=== PATIENT | female | born 1995 | race Caucasian/White ===

== ENCOUNTER → 2018-01-16 | Outpatient (CLI) | payer MEDICAID, OTHER ==
[~2018-01-16] MED LIST: DCS100C PO; DOCU100C37 PO; FERR-57 PO; FERR-84 PO; FLUC200T45 PO; FRS325T PO; IBP800T PO; IBUP-1780 PO; MAGN400T26 PO; MAGN400T6 PO; NITR-65 PO; OMEP20CA6 PO; OXYC-465 PO; OXYC1TAB12 PO; PREN-142 PO; PREN-98 PO
--- NOTE | 2018-01-16 08:41 | Diagnostic Imaging Report ---
INDICATION: Thyroid enlargement. TECHNIQUE: Grayscale sonographic images of the thyroid gland. CORRELATION STUDY: None FINDINGS: RIGHT LOBE: 4.9 x 1.5 x 1.8 cm. There is normal echotexture about the right lobe. LEFT LOBE: 4.5 x 1.6 x 1.4 cm. There is normal echotexture about the left lobe. Isthmus appears unremarkable. IMPRESSION: Borderline enlarged thyroid gland. Otherwise, unremarkable appearing thyroid ultrasound examination. (Normal gland size: 4-5 x 2 x 2 cm) Dictated by: Dictated on workstation # [id number]
== END ==
LOC: RAD 08:04
PROVIDERS: ATTEND Obstetrics & Gynecology
DX: E04.2 Nontoxic multinodular goiter (principal)
CPT/HCPCS: 76536

== ENCOUNTER → 2018-01-21 | Outpatient (CLI) | payer MEDICAID, OTHER ==
--- NOTE | 2018-01-22 13:55 | Diagnostic Imaging Report ---
Indication: Goiter. Patient was administered 204 mCi I-123 and a 4 hour and 24 uptake was obtained. Thyroid scan was also performed. 4 hour uptake is 26%. 24 hour uptake is 45%. Normal 24-hour uptake is typically 10-30%. Thyroid scan demonstrates fairly homogeneous uptake of activity throughout both lobes of the thyroid gland. No definite hot or cold nodules are seen. Impression: Mildly elevated thyroid uptake suggestive of hyperthyroidism. No other significant abnormality is seen. Dictated by: Dictated on workstation # [id number]
== END ==
LOC: CARD 10:50
PROVIDERS: ATTEND Obstetrics & Gynecology
DX: E04.9 Nontoxic goiter, unspecified (principal)
CPT/HCPCS: 78014

== ENCOUNTER 2020-10-07 21:43 | Outpatient (CLI) | payer OTHER, MEDICAID ==
[~2020-10-07] VITALS: Ht 154.9 cm; Wt 79.8 kg
[~2020-10-07 21:43] MED LIST changes: -OXYC-465 PO; +OXYC-556 PO
[2020-10-07 22:13] VITALS: BP 126/77
[2020-10-07 22:53] VITALS: BP 107/65
--- NOTE | 2020-10-10 08:03 | Physician Query-Final Dx ---
BENIGNO KEITA 10/10/20 0803: Clinic Account Progress/Dx Physician Query: Please give diagnosis Please include # weeks gestation Date of Service Oct 07, 2020 at 21:43 YOHAN REYES MD 10/10/20 1742: Clinic Account Progress/Dx DIAGNOSIS: Diagnosis 35 weeks gestation with false labor BENIGNO KEITA Oct 10, 2020 08:03 YOHAN REYES MD Oct 10, 2020 17:42
== END 2020-10-07 23:20 | disposition home or self-care (01) ==
LOC: LDRP 21:43 → WSo 21:43
PROVIDERS: ATTEND Obstetrics & Gynecology
DX: O62.4 Hypertonic, incoordinate, and prolonged uterine contractions (principal); Z3A.35 35 weeks gestation of pregnancy

== ENCOUNTER 2020-10-10 14:39 | Inpatient (IN) | payer OTHER, MEDICAID ==
[~2020-10-10] VITALS: Ht 154.9 cm; Wt 79.0 kg
[2020-10-10] VITALS (44 sets, daily range): BP systolic 113–140; BP diastolic 55–89
[2020-10-10] MEDS ORDERED: D5 LR IV SOLUTION 1,000 ML IV ONE (15:14)
[2020-10-10] MEDS: D5 LR IV SOLUTION 1,000 ML IV SCH ×3 (16:48→23:33)
[2020-10-10] MEDS ORDERED: D5 LR IV SOLUTION 1,000 ML IV SCH (17:15)
[2020-10-10 17:29] LABS: BASOPHILS % (AUTO) 0 % (0-10); EOSINOPHILS # (AUTO) 0.1 10^3/uL (0.0-0.3); EOSINOPHILS % (AUTO) 1 % (0-10); HEMATOCRIT 29 % (35-52); HEMOGLOBIN 8.6 g/dL (11.5-16.0); LYMPHOCYTES # (AUTO) 1.4 10^3/uL (1.0-4.0); LYMPHOCYTES % (AUTO) 13 % (12-44); MEAN CORPUSCULAR HEMOGLOBIN 22 pg (25-34); MEAN CORPUSCULAR HGB CONC 30 g/dL (32-36); MEAN CORPUSCULAR VOLUME 74 fL (80-99); MEAN PLATELET VOLUME 11.2 fL (9.0-12.2); MONOCYTES # (AUTO) 0.6 10^3/uL (0.0-1.0); MONOCYTES % (AUTO) 6 % (0-12); NEUTROPHILS # (AUTO) 8.9 10^3/uL (1.8-7.8); NEUTROPHILS % (AUTO) 80 % (42-75); PLATELET COUNT 368 10^3/uL (130-400); WHITE BLOOD COUNT 11.1 10^3/uL (4.3-11.0)
--- NOTE | 2020-10-10 17:37 | History & Physical ---
History and Physical Date Seen by Provider: Oct 10, 2020 Time Seen by Provider: 17:35 This patient is a 25-year-old 3 para 2 white female with 2 prior delivery before 36 weeks gestation. She currently is 36 weeks gestation and in the active labor. Her GBS culture after 35 weeks gestation was negative. She denies rupture membranes or bleeding. She does feel contractions of strength and intensity that remind her of her previous labors and deliveries Allergies are none Medications are vitamins Medical social and surgical history is all per the antepartum record HEENT exam is normal Neck is supple no lymphadenopathy no thyromegaly Abdomen is gravid soft nontender nondistended Extremities show no clubbing cyanosis. There is no Homans' sign. Pelvic exam shows a cervix 5 cm dilated 70 to 80% effaced 0-1 station vertex presentation with an intact membrane that is ruptured and artificially releasing clear fluid monitor shows contractions every 2 minutes with a normal heart rate pattern Assessment and plan 36-week in a patient with 2 prior deliveries prior to 37 weeks who is now an active labor she is being managed expectantly we anticipate a vaginal delivery 36 weeks with labor Allergies and Home Medications Allergies Coded Allergies: No Known Drug Allergies (Unverified , 04/25/14) Home Medications Vit No.124/Iron/FA 1 Each Tablet, 1 EACH PO DAILY, (Reported) Patient Home Medication List Home Medication List Reviewed: Yes YOHAN REYES MD Oct 10, 2020 17:37
[2020-10-10] MEDS ORDERED: IBUP-1780 PO (17:44)
[2020-10-10] MEDS ORDERED: DOCU-143 PO (17:44)
[2020-10-10] MEDS ORDERED: OXYC1TAB87 PO (17:44)
[2020-10-10] MEDS ORDERED: OXYTOCIN PRE-MIX DRIP 500 ML IV SCH ×2 (17:45→23:45)
--- NOTE | 2020-10-10 17:45 | Discharge Inst-Surgical ---
Discharge Inst-Surgical Depart Medication/Instructions New, Converted or Re-Newed RX: RX on Chart Consults/Follow Up Patient Instructions: As directed Orders & Referrals Follow Up Appt: Call to make follow up appt. for patient in 4 weeks. Activity Per routine post vaginal delivery instructions. Please call in RX to patient pharmacy. Diet as tolerated Patient may shower or tub bathe as desired. Activity Activity as Tolerated: No Diet Discharge Diet: No Restrictions YOHAN REYES MD Oct 10, 2020 17:45
[2020-10-10] MEDS ORDERED: fentaNYL 2 mcg/ml BUPIVA 0.125 100 ML ONE (18:23)
[2020-10-10] MEDS ORDERED: ONDANSETRON 4 MG/2 ML (SDV) Z0FRAN IV PRN (19:00)
[2020-10-10] MEDS ORDERED: NALOXONE 0.4 MG/ML 1 ML (NARCAN) VIAL IV PRN ×2 (19:00)
[2020-10-10] MEDS ORDERED: EPIDURAL (fentaNYL 2 MCG/ML BUPIVA 0.125%)100 ML BAG EPI SCH (19:00)
[2020-10-10] MEDS ORDERED: diphenhydrAMINE 50 MG/ML INJ (BENADRYL) IV PRN (19:00)
[2020-10-10] MEDS ORDERED: LACTATED RINGERS 1,000 ML IV SCH (19:00)
[2020-10-10] MEDS ORDERED: METOCLOPRAMIDE INJ 10 MG/2 ML (REGLAN) IV PRN (19:00)
[2020-10-10] MEDS ORDERED: KETOROLAC 30 MG/ML VIAL ONE (23:25)
[2020-10-10] MEDS ORDERED: BENZOCAINE/MENTHOL (DERMOPLAST) 56 ML CAN TP ONE (23:40)
[2020-10-10] MEDS ORDERED: WITCH HAZEL(TUCKS) 40 EA JAR ONE (23:40)
[2020-10-10] MEDS: KETOROLAC 30 MG/ML VIAL IVP SCH (23:43)
[2020-10-10] MEDS: CATHETER FLUSH 10 ML SYR IV SCH (23:43)
[2020-10-10] MEDS ORDERED: BENZOCAINE/MENTHOL (DERMOPLAST) 56 ML CAN TP PRN (23:45)
[2020-10-10] MEDS ORDERED: WITCH HAZEL(TUCKS) 40 EA JAR TOP PRN (23:45)
[2020-10-10] MEDS ORDERED: oxyCODONE/APAP 5/325MG (PERCOCET 5) TABLET PO PRN (23:45)
[2020-10-10] MEDS: IBUPROFEN 800 MG (MOTRIN) TAB PO SCH (23:45)
[2020-10-10] MEDS ORDERED: ONDANSETRON 4 MG/2 ML (SDV) Z0FRAN IVP PRN (23:45)
[2020-10-11] VITALS: BP 124/72
[2020-10-11] MEDS: D5 LR IV SOLUTION 1,000 ML IV SCH (00:29)
[2020-10-11 00:30] VITALS: BP 118/62
[2020-10-11 01:00] VITALS: BP 124/75
[2020-10-11] MEDS: KETOROLAC 30 MG/ML VIAL IVP SCH (05:37)
[2020-10-11] MEDS: CATHETER FLUSH 10 ML SYR IV SCH (05:37)
[2020-10-11] MEDS: IBUPROFEN 800 MG (MOTRIN) TAB PO SCH (05:37)
[2020-10-11 05:38] VITALS: BP 110/57
--- NOTE | 2020-10-11 07:08 | Anesthesia-Regional Post-Op ---
Regional Patient Condition Mental Status: Alert, Oriented x3 Circulation: Same as Pre-Op Headache: Absent Sensation: Full Recovery Motor Block: Absent Post Op Complications Complications None Follow Up Care/Instructions Patient Instructions None needed. Anesthesia/Patient Condition Patient is doing well, no complaints, stable vital signs, no apparent adverse anesthesia problems. No complications reported per nursing. D/C home per [facility] [place]: IBRAHIMA Frazier CRNA Oct 11, 2020 07:08
--- NOTE | 2020-10-11 07:46 | Progress Note ---
Standard Progress Note Progress Notes/Assess & Plan Date Seen by a Provider: Oct 11, 2020 Time Seen by a Provider: 07:44 Progress/Assessment & Plan This patient is without complaint. She is ambulating, voiding, tolerating oral intake well and has good pain control. Vital Signs Date Time Temp Pulse Resp B/P (MAP) Pulse Ox O2 Delivery O2 Flow Rate FiO2 10/11/20 05:38 36.3 72 18 110/57 (74) 99 Room Air 10/11/20 01:00 36.3 76 18 124/75 (91) Room Air 10/11/20 00:30 80 18 118/62 (80) Room Air 10/11/20 00:00 36.4 75 18 124/72 (89) Room Air 10/10/20 23:45 76 18 125/73 (90) Room Air 10/10/20 23:30 36.3 82 18 124/67 (86) Room Air 10/10/20 23:15 36.5 81 18 121/61 (81) Room Air 10/10/20 23:00 36.6 94 18 120/59 (79) Room Air 10/10/20 22:45 100 18 137/72 (93) Room Air 10/10/20 22:30 85 18 126/68 (87) 100 Room Air 10/10/20 22:15 85 18 119/64 (82) 100 Room Air 10/10/20 22:00 82 18 122/72 (89) 100 Room Air 10/10/20 21:45 79 18 120/64 (82) 99 Room Air 10/10/20 21:30 84 18 120/67 (84) 98 Room Air 10/10/20 21:15 76 18 122/65 (84) 98 Room Air 10/10/20 21:00 36.6 77 18 127/63 (84) 99 Room Air 10/10/20 20:45 85 18 122/69 (86) 98 Room Air 10/10/20 20:30 83 18 126/69 (88) 98 Room Air 10/10/20 20:15 95 18 127/74 (91) 96 Room Air 10/10/20 20:00 98 18 122/72 (89) 97 Room Air 10/10/20 19:45 99 18 126/76 (93) 98 Room Air 10/10/20 19:40 88 18 128/78 (95) 97 Room Air 10/10/20 19:35 37.0 87 18 129/80 (96) 97 Room Air 10/10/20 19:30 90 18 123/65 (84) 96 Room Air 10/10/20 19:25 88 18 123/64 (83) 96 Room Air 10/10/20 19:20 100 18 120/73 (89) 96 Room Air 10/10/20 19:15 99 18 118/66 (83) 95 Room Air 10/10/20 19:10 90 18 120/59 (79) 97 Room Air 10/10/20 19:08 93 18 130/61 (84) Room Air 10/10/20 19:05 92 18 128/59 (82) Room Air 10/10/20 19:03 99 18 127/58 (81) Room Air 10/10/20 19:00 95 18 133/60 (84) Room Air 10/10/20 18:58 114 18 137/63 (87) 97 Room Air 10/10/20 18:55 106 18 129/66 (87) 97 Room Air 10/10/20 18:53 110 18 131/67 (88) 97 Room Air 10/10/20 18:51 111 18 128/71 (90) 97 Room Air 10/10/20 18:49 105 18 125/61 (82) 97 Room Air 10/10/20 18:48 106 18 128/67 (87) 97 Room Air 10/10/20 18:46 107 18 124/73 (90) 97 Room Air 10/10/20 18:45 105 18 128/74 (92) 97 Room Air 10/10/20 18:43 100 18 127/72 (90) 97 Room Air 10/10/20 18:41 93 18 122/73 (89) 97 Room Air 10/10/20 18:39 106 18 140/89 (106) 97 Room Air 10/10/20 18:37 103 18 136/81 (99) 97 Room Air 10/10/20 18:35 100 18 133/75 (94) 97 Room Air 10/10/20 18:30 98 18 113/55 (74) Room Air 10/10/20 18:00 92 18 123/67 (85) Room Air 10/10/20 15:00 37.1 152 18 96 Room Air I & O 10/11/20 07:00 Intake Total 3000 ml Output Total 0 ml Balance 3000 ml Vital signs are stable. Patient is afebrile. Fundus is firm below the umbilicus and nontender. Extremities show no clubbing or cyanosis. There is no Homans' sign. Assessment and plan day #1 status post spontaneous vagin al delivery at 36 weeks gestation. Patient is doing well and is requesting discharge. Her baby was transferred to [facility] last evening. Patient reports her baby is doing quite well. Plan is for discharge home with follow-up in clinic Final Diagnosis 36-week spontaneous vaginal delivery YOHAN REYES MD Oct 11, 2020 07:46
[2020-10-11 07:52] VITALS: BP 98/53
[2020-10-11] MEDS ORDERED: DOCUSATE SODIUM 100 MG (COLACE) CAP PO SCH (09:00)
--- NOTE | 2020-10-11 12:22 | OPERATIVE REPORT ---
DATE OF SERVICE: 10/10/2020 The patient delivered by spontaneous vaginal delivery at 36 weeks gestation, a viable male with Apgars of 7 and 8 at 1 and 5 minutes respectively, weight of 7 pounds 6 ounces, time of 2248 and a cord blood pH of 7.28. The infant was bulb suctioned on delivery of the head and again on completion of delivery. Umbilical cord was doubly clamped, father cut the cord, the baby was passed to Dr. Huff at the pediatric warmer due to the prematurity. The infant was under the care of Dr. Huff from that point. The placenta delivered spontaneously [place]. It was normal with a 3-vessel cord. The cervix, vagina, rectum, and perineum were examined and found intact, except for some minor bilateral superficial abrasions that were hemostatic and required no repair. Sponge and needle counts were correct at completion of the delivery. The estimated blood loss was around 150 mL. The patient tolerated the delivery well and remained in the LDR for recovery. The baby was taken to the full term nursery under the care of Dr. Huff. Job ID: [id number] DocumentID: [id number] Dictated Date: 10/11/2020 08:05:38 Head Of Partner Development Date: 10/11/2020 12:21:09 Dictated By: YOHAN REYES MD MTDD
== END 2020-10-11 09:15 | disposition home or self-care (01) | DRG 807 ==
LOC: WSo 14:39 → LDRP 14:39 → WSo 14:51 → LDRP 17:05
PROVIDERS: ADMIT Obstetrics & Gynecology; ATTEND Obstetrics & Gynecology
PROC: 10E0XZZ Delivery of Products of Conception, External Approach (ICD-10-PCS; principal; 2020-10-10)
DX: O60.14X0 Preterm labor third trimester with preterm delivery third trimester, not applicable or unspecified (principal); Z37.0 Single live birth; Z3A.36 36 weeks gestation of pregnancy; O71.89 Other specified obstetric trauma
CPT/HCPCS: 36415; 85025; 86850; 86900; 86901